=== PATIENT | female | born 2000 | race Two or more races ===

== ENCOUNTER 2024-05-18 09:00 | Observation (INO) | payer MEDICAID, OTHER ==
[~2024-05-18] VITALS: Ht 160 cm; Wt 63.0 kg
[2024-05-18 10:05] LABS: Urine Bacteria MOD /hpf (None Seen); Urine Blood 3+ /uL (Negative); Urine Clarity Turbid (Clear); Urine Color Colorless (Yellow); Urine Mucus FEW (None Seen); Urine Protein, UAD 1+ (Negative); Urine Specific Gravity 1.014 (1.001-1.035); Urine Urobilinogen Normal (Negative); Urine WBC 250 /hpf (0 - 5)
[2024-05-18] MEDS: ACETAMINOPHEN 325 MG TAB PO ONE (10:16)
[2024-05-18] MEDS: LACTATED RINGER'S 1,000 ML IV ONE (10:16)
[2024-05-18] MEDS: ceFAZolin 1GM/50ML 50 ML IV ONE (10:16)
[2024-05-18 11:24] LABS: Basophils # (auto) 0 10 ^3/uL (0-0.2); Basophils % (auto) 0.1 % (0.0-2.0); Eosinophils # (auto) 0 10 ^3/uL (0-0.8); Hematocrit 30.7 % (36.0-46.0); Hemoglobin 10.7 g/dL (12.2-16.2); Lymphocytes # (auto) 0.5 10 ^3/uL (0.4-5.4); Lymphocytes % (auto) 3.6 % (10.0-50.0); Mean Corpuscular Hemoglobin 31.6 pg (28.0-32.0); Mean Corpuscular Hgb Conc. 34.9 g/dL (32.0-36.0); Mean Corpuscular Volume 90.6 fL (80.0-100.0); Monocytes # (auto) 0.6 10 ^3/uL (0-1.3); Monocytes % (auto) 4.5 % (0.0-12.0); Neutrophils # (auto) 12.3 10 ^3/uL (1.6-8.6); Neutrophils % (auto) 91.8 % (37.0-80.0); Platelet Count (auto) 214 10^3/uL (140-450); Red Blood Cells 3.39 10^6/uL (4.0-5.20); Red Cell Distribution Width 12.7 % (11.8-14.3); White Blood Cell 13.4 10^3/uL (4.4-10.8)
[2024-05-18 11:51] LABS: Alanine Aminotransferase 21 U/L (7-40); Albumin 3.8 g/dL (3.2-4.8); Alkaline Phosphatase 82 U/L (46-116); Anion Gap 10 (5-15); Aspartate Aminotransferase 17 U/L (13-40); BUN/Creatinine Ratio 10.6 (10.0-20.0); Blood Urea Nitrogen 5 mg/dL (9-23); Calcium 8.9 mg/dL (8.7-10.4); Carbon Dioxide 20 mmol/L (20-30); Chloride 107 mmol/L (98-107); Glucose 90 mg/dL (74-106); Potassium 3.1 mmol/L (3.5-5.1); Sodium 137 mmol/L (136-145)
[2024-05-18 11:52] LABS: Bilirubin, Total 0.6 mg/dL (0.2-1.0)
[2024-05-18] MEDS: cefTRIAXone 1GM/50ML D5W 50 ML IV ONE (12:14)
[2024-05-18] MEDS: POTASSIUM CHL 20 Meq TABLET PO ONE (15:36)
[2024-05-18] MEDS: ONDANSETRON HCL 4 MG/2 ML VIAL IV PRN (15:37)
[2024-05-18] MEDS: BUTORPHANOL TARTRATE 2 MG/1 ML VIAL IV PRN (15:39)
[2024-05-18] MEDS: ACETAMINOPHEN 325 MG TAB PO PRN (16:20)
[2024-05-18 18:30] VITALS: BP 97/52; PULSE 92; RESP 20; TEMP 98.4; O2SAT 96
[2024-05-18 22:59] VITALS: BP 101/55; PULSE 86; RESP 20; TEMP 98.7; O2SAT 98
[2024-05-19 03:00] VITALS: BP 90/46; PULSE 91; RESP 18; TEMP 98.3; O2SAT 96
[2024-05-19] MEDS: cefTRIAXone 1GM/50ML D5W 50 ML IV SCH (08:57)
[2024-05-19 09:01] VITALS: TEMP 98.1
== END 2024-05-19 10:10 | disposition home or self-care (01) ==
LOC: UNDOADMOB 09:00 → LDRP 09:00 → EDBD 09:00 → LDRP 09:13 → UNDODISOB 05-19 10:10
PROVIDERS: ADMIT Obstetrics & Gynecology; ATTEND Obstetrics & Gynecology
DX: O26.892 Other specified pregnancy related conditions, second trimester (principal); R51.9 Headache, unspecified; O26.832 Pregnancy related renal disease, second trimester; N12 Tubulo-interstitial nephritis, not specified as acute or chronic; Z3A.24 24 weeks gestation of pregnancy
CPT/HCPCS: 36415; 59025; 76775; 76815; 76817; 80053; 81001; 81002; 85025; 87086; 87088; 87186; 94760; 96365; 96366; 96367; 96375; 96376; G0378; J0595; J0690; J0696; J2405; J7030; J7120; 96360; 96361; 96374

== ENCOUNTER 2024-08-01 16:21 | Observation (INO) | payer MEDICAID ==
[~2024-08-01] VITALS: Ht 160 cm; Wt 65.3 kg
[2024-08-01 17:15] LABS: Fern Testing Negative
[2024-08-01] MEDS: TERBUTALINE SULFATE 1 MG/ML 1ML VIAL SC SCH (17:45)
--- NOTE | 2024-08-02 05:23 | DVHDS2 ---
Obstetrics Discharge Summary Obstetrics Discharge Summary Date of Admission: Aug 01, 2024 Date of Discharge: Aug 02, 2024 Reason For Admission: Observational/Evaluation ( Status), Others (Pelvic pain lesvia) Procedures: NST, Ultrasound Discharge Diagnosis: Others (No labor reassuring maternal and heart tones.) Discharge Information: Activity (Follow up with primary Ob), Diet (Routine), Medications (None), Instructions (Kick counts labor precautions SROM precautions), Discharge to (Home), Discarge date (08/01/2024) DINA GRAVES DO Aug 02, 2024 05:23
== END 2024-08-01 18:29 | disposition home or self-care (01) ==
LOC: LDRP 16:21
PROVIDERS: ADMIT Obstetrics & Gynecology; ATTEND Obstetrics & Gynecology
DX: O62.9 Abnormality of forces of labor, unspecified (principal); O26.893 Other specified pregnancy related conditions, third trimester; R10.2 Pelvic and perineal pain; Z3A.35 35 weeks gestation of pregnancy
CPT/HCPCS: 59025; 81002; 84112; 94760; 96372; G0378; J3105; Q0114

== ENCOUNTER 2024-08-18 09:56 | Observation (INO) | payer MEDICAID ==
--- NOTE | 2024-08-18 10:41 | DVHDS2 ---
Physician Discharge Progress N Final Diagnosis: labor check Operations or Procedures: Operations or Procedures nst Condition on Discharge: Good Disposition: Home Discharge Instructions: Diet: Regular Activity: No Restrictions, As Tolerated Medications: na Follow Up Care: Specialist: 1w Discharge Statement: "Patient was advised to return to the ER or call 911 if any headaches, dizziness, shortness of breath, chest pain, abdominal pain, bleeding, fevers, or worsening of medical condition. Patient was counseled about treatment plan, medications, possible side effects, patientverbalized understanding. All questions were answered to the best of my ability. This discharge took greater then 30 minutes in planning, reviewing documentation, counseling the patient, and discussing with other team members." KELLY BOWERS DO Aug 18, 2024 10:41
--- NOTE | 2024-08-18 11:38 | DVH ---
BIOPHYSICAL PROFILE HISTORY: ANOOP CHECK TECHNIQUE: Multiple transabdominal real-time grayscale sonographic images through the gravid uterus of the fetus with duplex Doppler color flow and M-mode spectral analysis FINDINGS: BIOPHYSICAL PROFILE: breathing score: 2 movement score: 2 tone score: 2 Quantitative ANOOP score: 2 (ANOOP: 7.9 Cm.) Total score: 8/8 Single live fetus in cephalic presentation. heart rate 135 beats per minute. Anterior placenta without previa or abruption IMPRESSION: 1. Biophysical profile score: 8/8 HS:Y
== END 2024-08-18 11:45 | disposition home or self-care (01) ==
LOC: LDRP 09:56 → UNDOADMOB 09:56 → LDRP 10:08
PROVIDERS: ADMIT Obstetrics & Gynecology; ATTEND Obstetrics & Gynecology
DX: O60.03 Preterm labor without delivery, third trimester (principal); O42.92 Full-term premature rupture of membranes, unspecified as to length of time between rupture and onset of labor; Z98.890 Other specified postprocedural states; Z79.899 Other long term (current) drug therapy; Z91.040 Latex allergy status; Z3A.37 37 weeks gestation of pregnancy
CPT/HCPCS: 59025; 76818; 81002; 94760; G0378

== ENCOUNTER 2024-08-18 23:13 | Inpatient (IN) | payer MEDICAID ==
[~2024-08-18] VITALS: Ht 160 cm; Wt 65.3 kg
[2024-08-19] MEDS ORDERED: WITCH HAZEL-GLYCERIN PAD TOP PRN
[2024-08-19] MEDS ORDERED: LIDOCAINE 2%HCL (LOCAL ANESTH.) INJ 20ML MDV IJ PRN
[2024-08-19] MEDS ORDERED: DERMOPLAST 60ML BOTTLE TOP PRN
[2024-08-19] MEDS ORDERED: NALBUPHINE HCL 10 MG/1ml INJECTION IV PRN
[2024-08-19] MEDS ORDERED: PHISODERM TOP SOLN 240ML BTL TOP PRN
--- NOTE | 2024-08-19 00:06 | DVHHP2 ---
OB CC & HPI Date Date of Admission: Aug 19, 2024 Patient Identification: : 1 Para: 0 EDC: Sep 03, 2024 EGA: 37.6wks Chief Complaints: Reason for admission: rupture of membranes Indication for induction: other (SROM) History of Present Complaints 23yo IUP@37.6wks presents to OB triage for SROM at 2100 today, clear fluid leaking down her legs. Pt reports irregular UCs. Denies VB/LINDQUIST/vision changes/RUQ pain. Endorses +FM. PNC: Routine PNC at [facility] OB with Dr. Barbosa, adequate visits, PNC uncomplicated. GTT wnl, dating based on LMP c/w 12wk sono, GBS negative. Past Medical History Cardiac: No pertinent Hx Pulmonary: No pertinent Hx Central Nervous System: No pertinent Hx GI: No pertinent Hx Hemotology/Oncology: No pertinent Hx Hepatobiliary: No pertinent Hx Psychiatric: No pertinent Hx Musculoskeletal: No pertinent Hx Rheumotologic: No pertinent Hx Infectious Disease: No peritnent Hx ENT: No pertinent Hx Renal/: No pertinent Hx Endocrine: No pertinent Hx Dermatology: No pertinent Hx Past Surgical History: No pertinent Hx OB History OB History Care: Good Care Ultrasounds: Normal mid trimester US Obstetrical Complications: None Medical Complications: None Allergies: Coded Allergies: Latex (Verified Allergy, Unknown, 05/18/24) Home Meds No Active Prescriptions or Reported Meds Home Meds PNV Family & Social History Family/Social History Past Family/Social History: denies Blood Type: O+ Rubella: immune RPR/VDRL: Negative GBS Status: Negative HBsAG: Negative Review of Systems Constitutional: No symptom reported Ears, Nose, & Throat: No symptom reported Eyes: No symptom reported Pulmonary/Respiratory: No symptom reported Cardiovascular: No symptom reported Gastrointestinal: No symptom reported Genitourinary: No symptom reported Musculoskeletal: No symptom reported Skin: No symptom reported Psychiatric: No symptom reported Endocrine: No symptom reported Hemotologic/Lymphatic: No symptom reported OB Admission Exam Physical Exam Vitals: VSS EFW in office on 08/12/24 was 6lbs 6oz, vertex HEENT: TMs Normal, Fontanelles Normal, Nasal Mucosa Normal, Eyes non-injected, Oropharynx Normal, PERRLA, Moist Membranes, EOMI Heart: Rhythm Normal Lungs: Clear Abdomen: Gravid Extremities: Normal Reflexes: Normal Pelvic Exam: SVE by RN: 1/thick/high, vertex RN observed amniotic fluid dripping down pts leg, nitrazine positive Membranes: Ruptured Amniotic Fluid: Clear Heart Rate: 130's Accelerations: Accelerations Present Decelerations: No Decelerations Tobacco Wetter Variability: Average (6-25) Contractions on Admission: < 5 Minutes Apart Date/Time Contractions Began: 08/18/24 at 2100 Intensity: Moderate OB Plan Plan Admitting Diagnosis: SROM Plan: Induction Other Plan: A: 23yo IUP@37.6wks Induction of Labor SROM, clear fluid approx. 3 hrs Category I EFM GBS negative P: Admit to L&D Informed consent obtained Discussed risks, benefits, alternatives of IOL for SROM with pt. Pt consents to IOL with PO cytotec. monitoring per order Routine labs ordered Pain mgmt PRN Frequent position changes in and out of bed encouraged Limit SVE unless necessary Intrauterine resuscitation PRN Anticipate CNM will consult with PILAR Levi CNM Aug 19, 2024 00:06
[2024-08-19] MEDS ORDERED: fentaNYL CITRATE 100 MCG/2 ML VL IV PRN (00:15)
[2024-08-19] MEDS: miSOPROStol 50 MCG per PRE-CUT 1/2 TAB PO PRN (00:58)
[2024-08-19 01:23] LABS: Lymphocytes % (auto) 21.1 % (10.0-50.0); Monocytes % (auto) 7.3 % (0.0-12.0); Neutrophils % (auto) 70.1 % (37.0-80.0); White Blood Cell 7.6 10^3/uL (4.4-10.8)
[2024-08-19 01:24] LABS: Basophils # (auto) 0 10 ^3/uL (0-0.2); Basophils % (auto) 0.6 % (0.0-2.0); Eosinophils # (auto) 0.1 10 ^3/uL (0-0.8); Eosinophils % (auto) 0.9 % (0.0-7.0); Hematocrit 32.6 % (36.0-46.0); Hemoglobin 11.1 g/dL (12.2-16.2); Lymphocytes # (auto) 1.6 10 ^3/uL (0.4-5.4); Mean Corpuscular Hemoglobin 29.6 pg (28.0-32.0); Mean Corpuscular Hgb Conc. 34.1 g/dL (32.0-36.0); Mean Corpuscular Volume 86.7 fL (80.0-100.0); Monocytes # (auto) 0.6 10 ^3/uL (0-1.3); Neutrophils # (auto) 5.4 10 ^3/uL (1.6-8.6); Platelet Count (auto) 296 10^3/uL (140-450); Red Blood Cells 3.76 10^6/uL (4.0-5.20); Red Cell Distribution Width 12.5 % (11.8-14.3)
[2024-08-19 01:31] LABS: Chloride 106 mmol/L (98-107); Potassium 3.5 mmol/L (3.5-5.1); Sodium 140 mmol/L (136-145)
[2024-08-19 01:33] LABS: Anion Gap 11 (5-15); Carbon Dioxide 23 mmol/L (20-31)
[2024-08-19 01:34] LABS: Calcium 9.2 mg/dL (8.7-10.4)
[2024-08-19 01:38] LABS: Glucose 93 mg/dL (74-106)
[2024-08-19 01:39] LABS: Urine Bacteria FEW /hpf (None Seen); Urine Blood Negative /uL (Negative); Urine Clarity Clear (Clear); Urine Color Colorless (Yellow); Urine Protein, UAD Negative (Negative); Urine Specific Gravity 1.008 (1.001-1.035); Urine Urobilinogen Normal (Negative); Urine WBC 1 /hpf (0 - 5); Urine pH 6.5 (5.0-9.0)
[2024-08-19 01:40] LABS: Fern Testing Negative
[2024-08-19 01:40] LABS: Alanine Aminotransferase 11 U/L (7-40); Albumin 3.8 g/dL (3.2-4.8)
[2024-08-19 01:41] LABS: Bilirubin, Total 0.3 mg/dL (0.2-1.0); INR 0.92 (0.9-1.15); Partial Thromboplastin Time 26.4 SEC (24.5-34.5); Prothrombin Time 9.8 sec (9.3-11.8); Total Protein 6.1 g/dL (5.7-8.2)
[2024-08-19 01:46] LABS: Alkaline Phosphatase 170 U/L (46-116); Aspartate Aminotransferase 12 U/L (13-40); Blood Urea Nitrogen 5 mg/dL (9-23)
[2024-08-19 02:03] LABS: Amphetamine Screen, Urine Neg (NEGATIVE); Barbiturate Scree,Urine Neg (NEGATIVE); Benzodiazephine Screen, Urine Neg (NEGATIVE); Cocaine Screen, Urine Neg (NEGATIVE); Opiate Scree,Urine Neg (NEGATIVE); Phencyclidine Screen, Urine Neg (NEGATIVE)
[2024-08-19 02:04] LABS: Cannabinoid Screen, Urine Neg (NEGATIVE)
[2024-08-19] MEDS: LACTATED RINGER'S 1,000 ML IV SCH ×2 (04:29→23:55)
--- NOTE | 2024-08-19 07:01 | DVHPN2 ---
Chief Complaints Patient reports: No new complaints Nursing reports: No new complaints Objective Medications Current Medications Medications (Trade) Dose Ordered Sig/Orly Route PRN Reason Start Time Stop Time Status Last Admin Benzocaine (Dermoplast) 1 applic PRN PRN TOP PERINEAL AREA DISCOMFORT 08/19/24 00:00 Fentanyl Citrate 100 mcg Q1HP PRN IV PAIN SCALE 7 THRU 10 08/19/24 00:15 Lactated Ringer's 1,000 ml @ 125 mls/hr Q8H IV 08/19/24 00:00 08/19/24 04:29 Lidocaine HCl (Xylocaine) 40 ml ONCE PRN IJ PERINEAL AREA DISCOMFORT 08/19/24 00:00 Misoprostol (Cytotec) 50 mcg Q4HPRN PRN PO CERVICAL RIPENING 08/19/24 00:00 08/19/24 05:05 Nalbuphine HCl (Nubain) 10 mg Q4HP PRN IV MODERATE PAIN (4-6 PAIN SCALE) 08/19/24 00:00 Sodium Lauryl Sulfate (Phisoderm) 240 ml PRN PRN TOP PERINEAL AREA DISCOMFORT 08/19/24 00:00 Froilan Agrawal (Danielle) 1 pad PRN PRN TOP PERINEAL AREA DISCOMFORT 08/19/24 00:00 Others ve-1cm/50/-2 Studies Laboratory Tests 08/19/24 00:53 Test 08/19/24 00:53 Range/Units Serum Glucose 93 74-106 mg/dL Ass/Plan Assessment srom Plan rec one cytotec KELLY BOWERS DO Aug 19, 2024 07:00
[2024-08-19] MEDS: ceFAZolin 1GM/50ML 50 ML IV SCH (07:59)
--- NOTE | 2024-08-19 12:57 | DVHPN2 ---
Chief Complaints Patient reports: No new complaints Nursing reports: No new complaints Objective Medications Current Medications Medications (Trade) Dose Ordered Sig/Orly Route PRN Reason Start Time Stop Time Status Last Admin Benzocaine (Dermoplast) 1 applic PRN PRN TOP PERINEAL AREA DISCOMFORT 08/19/24 00:00 Cefazolin Sodium 50 ml @ 100 mls/hr Q8H IV 08/19/24 08:00 08/19/24 07:59 Fentanyl Citrate 100 mcg Q1HP PRN IV PAIN SCALE 7 THRU 10 08/19/24 00:15 Lactated Ringer's 1,000 ml @ 125 mls/hr Q8H IV 08/19/24 00:00 08/19/24 07:59 Lidocaine HCl (Xylocaine) 40 ml ONCE PRN IJ PERINEAL AREA DISCOMFORT 08/19/24 00:00 Misoprostol (Cytotec) 50 mcg Q4HPRN PRN PO CERVICAL RIPENING 08/19/24 00:00 08/19/24 05:05 Nalbuphine HCl (Nubain) 10 mg Q4HP PRN IV MODERATE PAIN (4-6 PAIN SCALE) 08/19/24 00:00 Sodium Lauryl Sulfate (Phisoderm) 240 ml PRN PRN TOP PERINEAL AREA DISCOMFORT 08/19/24 00:00 Witkimberly Tanja (Tucks) 1 pad PRN PRN TOP PERINEAL AREA DISCOMFORT 08/19/24 00:00 Others ve- unchanged Studies Laboratory Tests 08/19/24 00:53 Test 08/19/24 00:53 Range/Units Serum Glucose 93 74-106 mg/dL Ass/Plan Assessment srom Plan lesvia too often for another cytotec supportive care KELLY BOWERS DO Aug 19, 2024 12:57
--- NOTE | 2024-08-19 15:45 | DVHPN2 ---
Chief Complaints Patient reports: No new complaints Nursing reports: No new complaints Objective Medications Current Medications Medications (Trade) Dose Ordered Sig/Orly Route PRN Reason Start Time Stop Time Status Last Admin Benzocaine (Dermoplast) 1 applic PRN PRN TOP PERINEAL AREA DISCOMFORT 08/19/24 00:00 Cefazolin Sodium 50 ml @ 100 mls/hr Q8H IV 08/19/24 08:00 08/19/24 15:31 Fentanyl Citrate 100 mcg Q1HP PRN IV PAIN SCALE 7 THRU 10 08/19/24 00:15 Lactated Ringer's 1,000 ml @ 125 mls/hr Q8H IV 08/19/24 00:00 08/19/24 07:59 Lidocaine HCl (Xylocaine) 40 ml ONCE PRN IJ PERINEAL AREA DISCOMFORT 08/19/24 00:00 Misoprostol (Cytotec) 50 mcg Q4HPRN PRN PO CERVICAL RIPENING 08/19/24 00:00 08/19/24 05:05 Nalbuphine HCl (Nubain) 10 mg Q4HP PRN IV MODERATE PAIN (4-6 PAIN SCALE) 08/19/24 00:00 Sodium Lauryl Sulfate (Phisoderm) 240 ml PRN PRN TOP PERINEAL AREA DISCOMFORT 08/19/24 00:00 Witch Tanja (Tucks) 1 pad PRN PRN TOP PERINEAL AREA DISCOMFORT 08/19/24 00:00 Others CM/60/-2 Studies Laboratory Tests 08/19/24 00:53 Test 08/19/24 00:53 Range/Units Serum Glucose 93 74-106 mg/dL Ass/Plan Assessment srom Plan PT IS HAVING UCS REGULARLY CANT AUGMENT KELLY HI DO Aug 19, 2024 15:45
[2024-08-20] MEDS: LACT. RINGERS/OXYTOCIN 20UNITS 1,000 ML IV SCH (03:14)
[2024-08-20] MEDS: NALOXONE HCL 0.4 MG/ML VIAL IV ONE (06:15)
[2024-08-20] MEDS: ePHEDrine SULFATE 50 MG/ML AMP IV ONE (06:15)
--- NOTE | 2024-08-20 07:05 | DVHPN2 ---
Chief Complaints Patient reports: No new complaints Nursing reports: No new complaints Objective Medications Current Medications Medications (Trade) Dose Ordered Sig/Orly Route PRN Reason Start Time Stop Time Status Last Admin Cefazolin Sodium 50 ml @ 100 mls/hr Q8H IV 08/19/24 08:00 08/19/24 23:54 Lactated Ringer's 1,000 ml @ 125 mls/hr Q8H IV 08/19/24 18:00 08/19/24 23:55 Oxytocin 1,000 ml @ 6 ml/hr Q24H IV 08/20/24 03:00 08/20/24 03:14 Others ve-2cm/80/-2 Studies Laboratory Tests 08/19/24 00:53 Test 08/19/24 00:53 Range/Units Serum Glucose 93 74-106 mg/dL Ass/Plan Assessment srom Plan rec epidural cont with KELLY Tran DO Aug 20, 2024 07:05
[2024-08-20 08:06] LABS: RPR Non Reactive (Non Reactive)
--- NOTE | 2024-08-20 09:56 | DVHPN2 ---
OB Labor Progress Note Date and Time Seen Date Seen: Aug 20, 2024 Time Seen: 09:30 Subjective Patient reports: No new complaints, Feels better Subjective Comment s/p Epidural. On IV Pitocin for suspected PROM since > 24h ago Fern test was negative, Nitrazine test + Objective Vital Signs Afeb VSS Monitoring Method Monitoring Method: External Heart Rate Heart Rate Baseline: 135 Heart Rate Variability: Moderate Presence of FHR Accelerations: Yes Presence of FHR Decelerations: No Contractions Contractions Intensity: Strong Membranes Membranes: Ruptured (AROM large bulging bag on my exam, bloody show, clear fluid) Amniotic Fluid Color: Clear Vaginal Exam Vag Exam Deferred: No Vaginal Exam Dilation: 6 Vaginal Exam Effacement: 90 Vaginal Exam Station: -1 Vaginal Exam Presentation: VTX Vaginal Exam Show: Moderate Medications Medications - Pitocin: Yes Medication - Epidural: Yes Lab Results Lab Results Current Medications Medications (Trade) Dose Ordered Sig/Orly Start Time Stop Time Status Last Admin Dose Admin Lactated Ringer's 1,000 ml @ 125 mls/hr Q8H 08/19/24 00:00 08/19/24 18:49 DC 08/19/24 17:49 125 MLS/HR Nalbuphine HCl (Nubain) 10 mg Q4HP PRN 08/19/24 00:00 Witch Tanja (Tucks) 1 pad PRN PRN 08/19/24 00:00 Sodium Lauryl Sulfate (Phisoderm) 240 ml PRN PRN 08/19/24 00:00 Benzocaine (Dermoplast) 1 applic PRN PRN 08/19/24 00:00 Misoprostol (Cytotec) 50 mcg Q4HPRN PRN 08/19/24 00:00 08/19/24 05:05 50 MCG Lidocaine HCl (Xylocaine) 40 ml ONCE PRN 08/19/24 00:00 Fentanyl Citrate 100 mcg Q1HP PRN 08/19/24 00:15 Oxytocin 500 ml @ 999 mls/hr Q31M ONCE 08/19/24 06:45 08/19/24 07:17 DC Oxytocin 500 ml @ 125 mls/hr Q4H ONCE 08/19/24 07:15 08/19/24 11:14 DC Cefazolin Sodium 50 ml @ 100 mls/hr Q8H 08/19/24 08:00 08/20/24 08:24 100 MLS/HR Lactated Ringer's 1,000 ml @ 125 mls/hr Q8H 08/19/24 18:00 08/19/24 23:55 125 MLS/HR Oxytocin 1,000 ml @ 6 ml/hr Q24H 08/20/24 03:00 08/20/24 03:14 6 ML/HR Naloxone HCl (Narcan) 0.2 mg PRN ONCE 08/20/24 06:15 08/20/24 06:16 DC Ephedrine Sulfate (ePHEDrine SULFATE) 10 mg PRN ONCE 08/20/24 06:15 08/20/24 06:16 DC Laboratory Tests Test 08/19/24 00:53 08/18/24 23:42 08/18/24 23:40 Range/Units White Blood Count 7.6 4.4-10.8 10^3/uL Red Blood Count 3.76 L 4.0-5.20 10^6/uL Hemoglobin 11.1 L 12.2-16.2 g/dL Hematocrit 32.6 L 36.0-46.0 % Mean Corpuscular Volume 86.7 80.0-100.0 fL Mean Corpuscular Hemoglobin 29.6 28.0-32.0 pg Mean Corpuscular Hemoglobin Concent 34.1 32.0-36.0 g/dL Red Cell Distribution Width 12.5 11.8-14.3 % Platelet Count 296 140-450 10^3/uL Mean Platelet Volume 7.7 6.9-10.8 fL Neutrophils (%) (Auto) 70.1 37.0-80.0 % Lymphocytes (%) (Auto) 21.1 10.0-50.0 % Monocytes (%) (Auto) 7.3 0.0-12.0 % Eosinophils (%) (Auto) 0.9 0.0-7.0 % Basophils (%) (Auto) 0.6 0.0-2.0 % Neutrophils # (Auto) 5.4 1.6-8.6 10 ^3/uL Lymphocytes # (Auto) 1.6 0.4-5.4 10 ^3/uL Monocytes # (Auto) 0.6 0-1.3 10 ^3/uL Eosinophils # (Auto) 0.1 0-0.8 10 ^3/uL Basophils # (Auto) 0 0-0.2 10 ^3/uL Nucleated Red Blood Cells 0.0 % Prothrombin Time 9.8 9.3-11.8 sec Prothrombin Time INR 0.92 0.9-1.15 Activated Partial Thromboplast Time 26.4 24.5-34.5 SEC Sodium Level 140 136-145 mmol/L Potassium Level 3.5 3.5-5.1 mmol/L Chloride Level 106 98-107 mmol/L Carbon Dioxide Level 23 20-31 mmol/L Anion Gap 11 5-15 Blood Urea Nitrogen 5 L 9-23 mg/dL Creatinine 0.50 L 0.550-1.02 mg/dL Glomerular Filtration Rate Calc 133 >90 mL/min BUN/Creatinine Ratio 10.0 10.0-20.0 Serum Glucose 93 74-106 mg/dL Calcium Level 9.2 8.7-10.4 mg/dL Total Bilirubin 0.3 0.2-1.0 mg/dL Aspartate Amino Transferase (AST) 12 L 13-40 U/L Alanine Aminotransferase (ALT) 11 7-40 U/L Alkaline Phosphatase 170 H 46-116 U/L Total Protein 6.1 5.7-8.2 g/dL Albumin 3.8 3.2-4.8 g/dL Rapid Plasma Reagin Non reactive Non Reactive Treponema pallidum Ab (TP-PA) Pending Urine Color Colorless Yellow Urine Clarity Clear Clear Urine pH 6.5 5.0-9.0 Urine Specific Kinney 1.008 1.001-1.035 Urine Protein Negative Negative Urine Ketones Negative Negative Urine Blood Negative Negative /uL Urine Nitrite Negative Negative Urine Bilirubin Negative Negative Urine Urobilinogen Normal Negative mg/dL Urine Leukocyte Esterase Negative Negative /uL Urine RBC 1 0 - 4 /hpf Urine WBC 1 0 - 5 /hpf Urine Squamous Epithelial Cells Few <5 /hpf Urine Bacteria Few H None Seen /hpf Urine Glucose Normal Normal mg/dL Urine Opiates Screen Neg NEGATIVE Urine Fentanyl Screen Neg NEGATIVE Urine Barbiturates Screen Neg NEGATIVE Urine Phencyclidine Screen Neg NEGATIVE Urine Amphetamines Screen Neg NEGATIVE Urine Benzodiazepines Screen Neg NEGATIVE Urine Cocaine Screen Neg NEGATIVE Urine Cannabinoids Screen Neg NEGATIVE Amniotic Fluid Ferning Test Negative Assessment Assessment Term , labor induction suspected PROM Plan Plan Continue IV pitocin as needed, labor mgmt anticipated Plan discussed with: Patient ANA LAURA DANG DO Aug 20, 2024 09:56
[2024-08-20] MEDS: LACT. RINGERS/OXYTOCIN 20UNITS 500 ML IV ONE ×2 (13:12→13:14)
[2024-08-20] MEDS: ROPIVACAINE HCL 100 ML ONE (13:18)
--- NOTE | 2024-08-20 14:57 | LDN2 ---
Labor and Delivery Note Date 08/20/24 Age 23 1 Para 1 EGA Term Diagnosis Term , PROM Vaginal Delivery: VTX Vacuum Assisted: No Placenta: Spontaneous Sex: Female Weight Pending Apgars 8/9 Amniotic Fluid: Clear Anesthesia Epidural Episiotomy: No Repaired with 2nd degree perineal laceration repaired in usual fashion EBL 75 mL Labs Blood Bank 08/19/24 00:53: Blood Type O POSITIVE Complications None ANA LAURA DANG DO Aug 20, 2024 14:57
[2024-08-20 15:16] VITALS: BP 131/67; PULSE 79; RESP 17; TEMP 98.4
[2024-08-20] MEDS ORDERED: PREN-96 PO (15:57)
[2024-08-20] MEDS: IBUPROFEN 600 MG TAB PO PRN (17:15)
[2024-08-20 18:45] VITALS: BP 112/71; PULSE 98; RESP 16; TEMP 98.1; O2SAT 95
[2024-08-20] MEDS: DOCUSATE SOD 100 MG CAP PO SCH (21:44)
[2024-08-20] MEDS: ACETAMINOPHEN 325 MG TAB PO PRN (21:44)
[2024-08-20 23:00] VITALS: BP 102/57; PULSE 88; RESP 16; TEMP 98.1; O2SAT 100
[2024-08-21 03:00] VITALS: BP 97/62; PULSE 80; RESP 18; TEMP 98; O2SAT 100
--- NOTE | 2024-08-21 06:50 | DVHPN2 ---
Progress Note Date Seen: Aug 21, 2024 Subjective PPD#1 s/p , 2nd degree perineal laceration Doing well. no acute complaints. Lochia minimal Had prolonged PROM, no fever or evidence of endometritis. vital signs Vital Sign Date Time Temp Pulse Resp B/P (MAP) Pulse Ox O2 Delivery O2 Flow Rate FiO2 08/21/24 03:00 98.0 80 18 97/62 (74) 100 98.0 08/20/24 19:00 Room Air Total Intake and Output 08/20/24 08/20/24 08/21/24 15:00 23:00 07:00 Intake Total 75.4 ml Output Total 1716 ml Balance 75.4 ml -1716 ml medications Current Medications Medications Dose Ordered Sig/Orly Route Start Time Stop Time Status Last Admin Dose Admin Nalbuphine HCl 10 mg Q4HP PRN IV 08/19/24 00:00 Cancel Witch Tanja 1 pad PRN PRN TOP 08/19/24 00:00 Sodium Lauryl Sulfate 240 ml PRN PRN TOP 08/19/24 00:00 Benzocaine 1 applic PRN PRN TOP 08/19/24 00:00 Lidocaine HCl 40 ml ONCE PRN IJ 08/19/24 00:00 Cancel Fentanyl Citrate 100 mcg Q1HP PRN IV 08/19/24 00:15 Cancel Ibuprofen 600 mg Q6HP PRN PO 08/20/24 16:15 08/20/24 17:15 600 MG Acetaminophen 650 mg Q4HP PRN PO 08/20/24 16:15 08/20/24 21:44 650 MG Docusate Sodium 200 mg HS PO 08/20/24 22:00 08/20/24 21:44 200 MG laboratory and microbiology Laboratory Tests 08/19/24 00:53 Test 08/19/24 00:53 Range/Units Serum Glucose 93 74-106 mg/dL Objective O: AFVSS Chest: heart and lung sounds normal. Abd soft, non-tender, fundus firm, BS, no rebound or guarding, Ext Neg Homans, Non-tender, edema Lochia - minimal Labs Reviewed Assessment/Plan 23y s/p at Term , 38 wk Normal course Plan CBC today D/C planning. Plan discussed with: Patient ANA LAURA DANG DO Aug 21, 2024 06:50
[2024-08-21] MEDS ORDERED: IBU600T PO (06:57)
[2024-08-21 07:00] VITALS: BP 96/49; PULSE 76; RESP 18; TEMP 97.9; O2SAT 96
[2024-08-21 08:25] LABS: Basophils # (auto) 0 10 ^3/uL (0-0.2); Basophils % (auto) 0.3 % (0.0-2.0); Eosinophils # (auto) 0.1 10 ^3/uL (0-0.8); Eosinophils % (auto) 1.3 % (0.0-7.0); Hematocrit 35.4 % (36.0-46.0); Hemoglobin 11.8 g/dL (12.2-16.2); Lymphocytes # (auto) 1.7 10 ^3/uL (0.4-5.4); Lymphocytes % (auto) 16.5 % (10.0-50.0); Mean Corpuscular Hemoglobin 29.4 pg (28.0-32.0); Mean Corpuscular Hgb Conc. 33.4 g/dL (32.0-36.0); Mean Corpuscular Volume 88.3 fL (80.0-100.0); Monocytes # (auto) 0.7 10 ^3/uL (0-1.3); Monocytes % (auto) 6.8 % (0.0-12.0); Neutrophils # (auto) 7.9 10 ^3/uL (1.6-8.6); Neutrophils % (auto) 75.1 % (37.0-80.0); Platelet Count (auto) 290 10^3/uL (140-450); Red Blood Cells 4.01 10^6/uL (4.0-5.20); Red Cell Distribution Width 12.8 % (11.8-14.3); White Blood Cell 10.6 10^3/uL (4.4-10.8)
[2024-08-21 15:20] VITALS: BP 113/70; PULSE 91; RESP 18; TEMP 97.9; O2SAT 100
[2024-08-23 10:06] LABS: Treponema Pallidum Ab LC Non Reactive (Non Reactive)
== END 2024-08-21 16:19 | disposition home or self-care (01) | DRG 560 ==
LOC: LDRP 23:13 → OBSVTOIN 23:45 → LDRP 08-19 00:01
PROVIDERS: ADMIT Obstetrics & Gynecology; ATTEND Obstetrics & Gynecology
PROC: 10E0XZZ Delivery of Products of Conception, External Approach (ICD-10-PCS; principal; 2024-08-20)
PROC: 0KQM0ZZ Repair Perineum Muscle, Open Approach (ICD-10-PCS; 2024-08-20)
PROC: 3E0DXGC Introduction of Other Therapeutic Substance into Mouth and Pharynx, External Approach (ICD-10-PCS; 2024-08-20)
PROC: 3E033VJ Introduction of Other Hormone into Peripheral Vein, Percutaneous Approach (ICD-10-PCS; 2024-08-20)
PROC: 10907ZC Drainage of Amniotic Fluid, Therapeutic from Products of Conception, Via Natural or Artificial Opening (ICD-10-PCS; 2024-08-20)
DX: O42.92 Full-term premature rupture of membranes, unspecified as to length of time between rupture and onset of labor (principal); Z37.0 Single live birth; O70.1 Second degree perineal laceration during delivery; Z3A.37 37 weeks gestation of pregnancy
CPT/HCPCS: 36415; 59025; 59409; 62282; 80053; 80307; 81001; 81002; 85025; 85610; 85730; 86592; 86780; 86850; 86900; 86901; 94760; 94762; 96360; 96361; 96365; 96366; G0378; J2590

== ENCOUNTER → 2024-11-18 | Outpatient (CLI) | payer MEDICAID ==
[~2024-11-18] MED LIST: IBU600T PO; PREN-96 PO
[2024-11-20 04:06] LABS: Chlamydia Trachomatis, NAA Negative (Negative); Neisseria gonorrhoeae, NAA Negative (Negative)
== END | disposition home or self-care (01) ==
LOC: LAB 09:54
PROVIDERS: ATTEND Nurse Practitioner Women's Health
DX: Z01.419 Encounter for gynecological examination (general) (routine) without abnormal findings (principal); N39.0 Urinary tract infection, site not specified